=== PATIENT | female | born 1980 | race Caucasian/White ===

== ENCOUNTER 2019-11-21 13:02 | Emergency (ER) | payer OTHER ==
[~2019-11-21] VITALS: Ht 162.6 cm; Wt 99.8 kg
--- OUTSIDE RECORDS SUMMARY | 2019-11-21 13:05 | XMS REPORT | Continuity of Care Document ---
Author Author ALISSA Broussard Inspirato Address Unknown Phone Unavailable Care Team Providers Care Ham Stringer Name Role Phone [employer] Information [employer] Unavailable Un available Problems Problem Status Onset Date Classification Date Reported Comments Source Tobacco use disorder Active Diagnosis 10/26/2019 [facility] Pain, unspecified Active Diagnosis 10/26/2019 [facility] Anxiety disorder, unspecified Active Problem [facility] Other chronic pain Active Diagnosis 10/26/2019 [facility] (current) use of insulin Active Problem [facility] Primary Diabetic polyneuropathy associated with type 2 diabetes mellitus Active Diag nosis 10/26/2019 [facility] Chronic hepatitis C without hepatic coma Active Problem 10/26/2019 [facility] Low vitamin D level Active Problem 10/26/2019 [facility] Anxiety with depression Active Problem 10/26/2019 [facility] Mixed hyperlipidemia Active Problem 10/26/2019 [facility] Primary Type 2 diabetes mellitus with other diab etic kidney complication Active Prob carlton 10/26/2019 [facility] Primary PTSD (post-traumatic stress disorder) Active Diagnosis 10/26/2019 [facility] Primary Type 2 diabetes mellitus with hyperglyce tegan, without long-term current use of insulin Active Problem 10/26/2019 [facility] Proteinuria, unspecified Active Problem 10/26/2019 [facility] Primary Type 2 diabetes mellitus without complications Active Problem 10/26/2019 [facility] Medications Medication Details Route Status Patient Instructions Ordering Provider Order Date Source Lantus SoloStar 20 units Subcutaneous Active 100 UNIT/ML Subcutaneous twice a day (bid) Loki10/25/2019 [facility] Ergocalciferol 1 capsule Orally Active 1.25 MG (79070 UT) Oral ly once a week 10/25/2019 [facility] Lisinopril 1 tablet Orally Active 5 MG Orally Once a day Loki 10/25/2019 [facility] Atorvastatin Calcium 1 tablet Orally Active 40 MG Orally once every night Loki 10/25/2019 [facility] Duloxetine HCl 1 capsule Orally Active 30 MG Orally Once a day Loki 10/25/2019 [facility] Allergies, Adverse Reactions, Alerts Substance Category Reaction Severity Reaction type Status Date Reported Comments Source N.K.D.A. Adverse Reaction Info Not Available Adverse Reaction 10/25/2019 [facility] Immunizations No Data Provided for This Section Results No Data Provided for This Section Pathology Reports No Data Provided for This Section Diagnostic Reports No Data Provided for This Section Consultation Notes No Data Provided for This Section Discharge Summaries No Data Provided for This Section History and Physicals No Data Provided for This Section Vital Signs No Data Provided for This Section Encounters No Data Provided for This Section Procedures No Data Provided for This Section Assessment and Plan No Data Provided for This Section Plan of Care No Data Provided for This Section Social History No Data Provided for This Section Family History No Data Provided for This Section Advance Directives No Data Provided for This Section Functional Status No Data Provided for This Section
--- OUTSIDE RECORDS SUMMARY | 2019-11-21 13:05 | XMS REPORT ---
Author Author Karena Manjarrez Organization [employer] Address Unknown Phone Unavailable Care Team Providers Care Community Relations Liaison Name Role Phone Chely Manjarrezjiha Unavailable Allergies, Adverse Reactions, Alerts Substance Reaction Event Type N.K.D.A. Info Not Available Non Drug Allergy Problems Problem Type Condition Code Onset Dates Condition Statu s Assessment Tobacco use disorder F17.200 Active Assessment Pain, unspecified R52 Active Problem Anxiety disorder, unspecified F41.9 Active Assessment Other chronic pain G89.29 Active Problem retirement (current) use of insulin Z79.4 Active Assessment Diabetic polyneuropathy associated with type 2 diabetes mellitus E11.42 Active Problem Chronic hepatitis C without hepatic coma B18.2 Active Problem Low vitamin D level R79.89 Active Problem Anxiety with depression F41.8 Acti ve Problem Mixed hyperlipidemia E78.2 Active Problem Other chronic pain G89.29 Active Assessment Low vitamin D level R79.89 Active Assessment Anxiety with depression F41.8 Acti ve Problem Type 2 diabetes mellitus with other diabetic kid andrew complication E11.29 Active Assessment PTSD (post-traumatic stress disorder) F43.10 Active Problem Diabetic polyneuropathy associated with type 2 d iabetes mellitus E11.42 Active Problem Type 2 diabetes mellitus wit h hyperglycemia, without long-term current use of insulin E11.65 Active Problem Pain, unspecified R52 Active Problem Proteinuria, unspecified R80.9 Act lisa Assessment Type 2 diabetes mellitus with other diab etic kidney complication E11.29 Active Assessment Type 2 diabetes mellitus wit h hyperglycemia, without long-term current use of insulin E11.65 Active Assessment Mixed hyperlipidemia E78.2 Active Assessment Proteinuria, unspecified R80.9 Act lisa Problem PTSD (post-traumatic stress disorder) F43.10 Active Problem Tobacco use disorder F17.200 Active Problem Type 2 diabetes mellitus without complications E11.9 Active Medications Medication Code System Code Instructions Start Date End Date Status Dosage Lantus SoloStar [facility] 10141066887 100 UNIT/ML Subcutaneous twice a day (bid) October 25, 2019 Active 20 units Ergocalciferol [facility] 44894380161 1.25 MG (18886 UT) Orally once a week October 25, 2019 January 23, 2020 Active 1 capsule Lisinopril [facility] 23414702261 5 MG Orally Once a day October 25, 2019 Active 1 tablet Atorvastatin Calcium [facility] 71229590207 40 MG Orally once ev maxx night October 25, 2019 Active 1 tablet Duloxetine HCl [facility] 62353465758 30 MG Orally Once a day October 24 0 Active 1 capsule Results No Known Results Summary Purpose [employer] Submission
[2019-11-21] MEDS ORDERED: CEFTRIAXONE SOD 1 GM/NS 50 ML 50 ML IV ONE (13:15)
[2019-11-21 13:38] LABS: BASOPHILS % 0.2 % (0.0-1.0); EOSINOPHILS # (AUTO) 0.1 (0.0-0.4); EOSINOPHILS % 0.7 % (0.0-6.0); HEMATOCRIT 42.2 % (34.2-44.1); HEMOGLOBIN 14.2 g/dL (12.0-16.0); LYMPHOCYTES # (AUTO) 2.8 (1.0-3.2); LYMPHOCYTES % 34.7 % (18.0-39.1); MEAN CORPUSCULAR HEMOGLOBIN 29.3 pg (28-32); MEAN CORPUSCULAR HGB CONC 33.6 g/dL (31-35); MONOCYTES # (AUTO) 0.4 (0.2-0.8); MONOCYTES % 4.8 % (4.4-11.3); NEUTROPHILS # (AUTO) 4.9 (2.1-6.9); NEUTROPHILS % 59.4 % (38.7-80.0); PLATELET COUNT 264 x10e3/uL (140-360); RED BLOOD COUNT 4.85 x10e6/uL (3.6-5.1); RED CELL DISTRIBUTION WIDTH 12.3 % (11.7-14.4)
[2019-11-21 13:58] LABS: ANION GAP 14.9 mmol/L (8-16); BLOOD UREA NITROGEN 16 mg/dL (7-26); BUN/CREATININE RATIO 23 (6-25); CALCIUM 9.3 mg/dL (8.4-10.2); CARBON DIOXIDE 22 mmol/L (22-29); CHLORIDE 101 mmol/L (98-107); CREATININE, SERUM 0.71 mg/dL (0.57-1.11); EST GLOMERULAR FILTRATION RATE > 60 ML/MIN (60-); GLUCOSE 336 mg/dL (74-118); POTASSIUM 3.9 mmol/L (3.5-5.1); SODIUM 134 mmol/L (136-145)
--- NOTE | 2019-11-21 14:56 | Diagnostic Imaging Report ---
EXAM: TOES LEFT MIN 2 VIEWS DATE: 11/21/2019 2:35 PM INDICATION: Left toe pain COMPARISON: None FINDINGS: AP, oblique, and lateral views are obtained of the left toes. There is no evidence for acute fracture or dislocation. No focal lytic or blastic abnormality is identified. The surrounding soft tissues are unremarkable without evidence for radiopaque foreign body. IMPRESSION: No acute radiographic abnormality identified within the left toes. Signed by: Dr. Tay Hart MD on 11/21/2019 2:52 PM
[2019-11-21] MEDS ORDERED: CLINDAMYCIN 600MG / 50ML 50 ML IV ONE (15:30)
--- NOTE | 2019-11-21 15:32 | Emergency Department Note ---
History of Present Illnes History of Present Illness Chief Complaint: General Medicine Complaints Stated Complaint: BIG TOE ON LFT FOOT PAIN History of Present Illness This is a 39 year old female . MD Complaint: left great toe pain and swelling x 2 yeras, recently worse Historian: Patient Onset (how long ago): year(s) Location: left great toe Quality: aching Radiation: extremity Severity: moderate Duration (how long): day(s) Timing of current episode: constant Progression: worsening Chronicity: chronic Relieving factors: none Exacerbating factors: movement Associated symptoms: denies other symptoms Treatments prior to arrival: none Risk factors: diabetes Past Medical/Family History Physician Review I have reviewed the patient's past medical and family history. Any updates have been documented here. Past Medical History Recent Fever: No Clinical Suspicion of Infectio: Yes New/Unexplained Change in Ment: No Past Medical History: Hypertension, Diabetes Family History Family history of heart diseas: Yes Review of Systems Review of Systems Constitutional: no symptoms EENTM: no symptoms Cardiovascular: no symptoms Gastointestinal/Abdominal: no symptoms Genitourinary: no symptoms Musculoskeletal: joint pain Integumentary: ecchymosis Neurological: no symptoms Psychological: no symptoms Endocrine: no symptoms Hematological/Lymphatic: no symptoms Review of other systems All other systems reviewed and negative. Physical Exam Related Data Allergies: Coded Allergies: No Known Allergies (Unverified , 11/21/19) Physical Exam CONSTITUTIONAL Constitutional: well-developed, well-nourished, obese HENT HENT: normocephalic EYES Eyes: PERRL, conjunctivae normal, EOM normal, lids normal NECK Neck: ROM normal, supple PULMONARY Pulmonary: effort normal, breath sounds normal CARDIOVASCULAR Cardiovascular: regular rhythm, heart sounds normal, intact distal pulses, capillary refill normal, normal rate GASTROINTESTINAL Abdominal: soft, nontender, bowel sounds normal GENITOURINARY SKIN small red area in linear form noted to left ankle Skin: warm, dry, bruising MUSCULOSKELETAL Musculoskeletal: ROM normal NEUROLOGICAL Neurological: alert, oriented x 3 PSYCHOLOGICAL Psychiatric/behavioral: mood/affect normal Results Laboratory Laboratory Blood sugar 336 Imaging Y: Yes Impressions DATE: 11/21/2019 2:35 PM INDICATION: Left toe pain COMPARISON: None FINDINGS: AP, oblique, and lateral views are obtained of the left toes. There is no evidence for acute fracture or dislocation. No focal lytic or blastic abnormality is identified. The surrounding soft tissues are unremarkable without evidence for radiopaque foreign body. IMPRESSION: No acute radiographic abnormality identified within the left toes. Critical Care Time Subsequent provider I assumed direction of critical care for this patient from another provider of my specialty. Assessment & Plan Medications in the ED Ceftriaxone Sodium 50 ml @ 100 mls/hr ONCE ONCE IV ; Start 11/21/19 at 13:15; Stop 11/21/19 at 13:44; Status UNV CHRISTOS RIGGS NP November 21, 2019 13:28
== END 2019-11-21 15:46 | disposition home or self-care (01) ==
LOC: ER 13:02
DX: M79.675 Pain in left toe(s) (principal); M79.89 Other specified soft tissue disorders; G89.29 Other chronic pain; E11.65 Type 2 diabetes mellitus with hyperglycemia; I10 Essential (primary) hypertension
CPT/HCPCS: 36415; 80048; 85025; 99282